=== PATIENT | female | born 1990 | race Hispanic/Latino ===

== ENCOUNTER 2019-07-26 16:35 | Outpatient (CLI) | payer MEDICAID ==
[2019-07-26 16:52] VITALS: BP 132/96
[2019-07-26] MEDS ORDERED: LACTATED RINGERS 500 ML IV ONE (17:37)
== END 2019-07-26 17:40 | disposition home or self-care (01) ==
LOC: TRG 16:35
PROVIDERS: ATTEND Obstetrics & Gynecology
DX: O47.00 False labor before 37 completed weeks of gestation, unspecified trimester (principal)
CPT/HCPCS: 59025

== ENCOUNTER 2019-09-19 01:58 | Outpatient (CLI) | payer MEDICAID ==
[2019-09-19 03:30] LABS: Bacteria,Urine 1+ /HPF (Negative); Bilirubin,Urine NEG (Negative); Blood,Urine SM (Negative); Color,Urine Yellow (Yellow); Mucus,Urine FEW /HPF; Protein,Urine <15 mg/dL mg/dL (Negative); Urobilinogen,Urine < 2.0 mg/dL (<2.0)
[2019-09-19] MEDS ORDERED: LACTATED RINGERS 1,000 ML IV ONE (04:32)
[2019-09-19 05:38] VITALS: BP 109/63
== END 2019-09-19 06:05 | disposition home or self-care (01) ==
LOC: TRG 01:58
PROVIDERS: ATTEND Obstetrics & Gynecology
DX: O26.893 Other specified pregnancy related conditions, third trimester (principal); R10.30 Lower abdominal pain, unspecified; O47.03 False labor before 37 completed weeks of gestation, third trimester; O10.913 Unspecified pre-existing hypertension complicating pregnancy, third trimester; Z3A.28 28 weeks gestation of pregnancy
CPT/HCPCS: 59025; 81001; 87086; 96360; J7120; 96365

== ENCOUNTER 2019-10-14 15:28 | Outpatient (CLI) | payer MEDICAID ==
[2019-10-14 17:27] VITALS: BP 120/63
--- NOTE | 2019-10-14 19:05 | Ultrasound Report ---
Limited OB Ultrasound HISTORY: JUANITA. TECHNIQUE: Grayscale and color Doppler imaging performed. COMPARISON: None FINDINGS: There is a single intrauterine gestation which is cephalic in presentation with heart rate of 125 bpm. JUANITA is 13 cm. Reported clinical age is 31 weeks and 4 days. IMPRESSION: Single viable intrauterine gestation as above. Signer Name: Stone Watts MD Signed: 10/14/2019 7:01 PM Workstation Name: [id number]
== END 2019-10-14 19:03 | disposition home or self-care (01) ==
LOC: TRG 15:28
PROVIDERS: ATTEND Obstetrics & Gynecology
DX: O47.03 False labor before 37 completed weeks of gestation, third trimester (principal); Z3A.31 31 weeks gestation of pregnancy
CPT/HCPCS: 59025; 76815

== ENCOUNTER 2019-10-27 03:43 | Outpatient (CLI) | payer MEDICAID ==
[2019-10-27 06:49] LABS: Bilirubin,Urine NEG (Negative); Blood,Urine MOD (Negative); Color,Urine Yellow (Yellow); Mucus,Urine FEW /HPF; Protein,Urine <15 mg/dL mg/dL (Negative); Urobilinogen,Urine < 2.0 mg/dL (<2.0)
[2019-10-27 07:24] LABS: Hematocrit 36.9 % (30.3-42.9); Hemoglobin 12.4 gm/dl (10.1-14.3); Mean Corpuscular HGB Conc 34 % (30-34); Mean Corpuscular Volume 90 fl (79-97); Platelet Count 234 K/mm3 (140-440); Red Blood Count 4.09 M/mm3 (3.65-5.03); Red Cell Distribution Width 12.6 % (13.2-15.2)
[2019-10-27 08:34] LABS: Alanine Aminotransferase 13 units/L (7-56)
[2019-10-27] MEDS ORDERED: BUTALB/ACETAMINOPHEN/CAFFEINE TAB PO PRN (11:31)
[2019-10-27 13:59] VITALS: BP 135/84
== END 2019-10-27 14:33 | disposition home or self-care (01) ==
LOC: TRG 03:43
PROVIDERS: ATTEND Obstetrics & Gynecology
DX: O26.893 Other specified pregnancy related conditions, third trimester (principal); R51 Headache; Z3A.33 33 weeks gestation of pregnancy
CPT/HCPCS: 36415; 81001; 82565; 83615; 84450; 84460; 84550; 85027

== ENCOUNTER 2019-11-02 09:41 | Inpatient (IN) | payer MEDICAID ==
--- NOTE | 2019-11-02 10:42 | History and Physical Report ---
History of Present Illness Date of examination: 11/02/19 Chief complaint: Elevated BP's in office History of present illness: Pt is a 29yo BF EDC 12/12/19; EGA 34 2/7 weeks presents to L&D from [facility] for evaluation of elevated BP's in office (150/117 and 149/96). She received care at [facility] since 10 weeks and co-managed by [facility] for Morbid Obesity, history of Preeclampsia, Chronic hypertension - not on meds, and delivery. She complains of headaches for past several days, but denies visual disturbances or epigastric pain. records are available and GBS is Positive. Past History Past Medical History: hypertension Past Surgical History: no surgical history PSS DELIVERY PROFESSIONAL History: herpes Social history: no significant social history, single - Obstetrical History Expected Date of Delivery: 12/12/19 Actual Gestation: 34 Week(s) 2 Day(s) : 3 Medications and Allergies Allergies Allergy/AdvReac Type Severity Reaction Status Date / Time No Known Allergies Allergy Unverified 07/26/19 16:52 Home Medications Medication Instructions Recorded Confirmed Last Taken Type Butalb/Acetamin/Caff 50-325-40 1 tab PO Q6HR PRN #20 tab 10/27/19 Unknown Rx [Fioricet 50-325-40] Review of Systems All systems: negative - Vital Signs Vital signs: Vital Signs Temp Pulse Resp BP Pulse Ox 97.6 F 71 16 137/89 98 11/02/19 10:07 11/02/19 10:07 11/02/19 10:07 11/02/19 10:07 11/02/19 10:07 Temp Pulse Resp BP Pulse Ox 97.6 F 72 16 139/107 98 11/02/19 10:07 11/02/19 10:27 11/02/19 10:07 11/02/19 10:22 11/02/19 10:27 - Physical Exam Breasts: Positive: deferred Cardiovascular: Regular rate Lungs: Positive: Clear to auscultation Abdomen: Positive: normal appearance Genitourinary (Female): Positive: normal external genitalia Uterus: Positive: enlarged Extremities: Positive: normal - Obstetrical FHR: category 1 Uterine Contraction Pattern: Absent Results Result Diagrams: 11/02/19 12:00 11/02/19 12:00 All other labs normal. Ultrasound: report reviewed ([facility] 08/13) Assessment and Plan - Patient Problems (1) 34 weeks gestation of Onset Date: 11/02/19 Current Visit: Yes Status: Acute Plan to address problem: A: IUP @ 34 2/7 weeks Chronic hypertension with Superimposed Preeclampsia Morbid obesity +GBS History of Preeclampsia History of delivery P: Admit to L&D for Observation and further evaluation of preeclampsia Obtain PIH labs, 24hour urine for protein, EKG Begin IV Magnesium sulfate, IV Hydralazine and IM Steroids [facility] consultation (2) Preeclampsia Onset Date: 11/02/19 Current Visit: Yes Status: Acute Qualifiers: Trimester: third trimester Qualified Code(s): O14.93 - Unspecified pre- eclampsia, third trimester
[2019-11-02] MEDS ORDERED: SENNOSIDES/DOCUSATE SODIUM 8.6/50 MG TAB PO PRN (10:46)
[2019-11-02] MEDS ORDERED: DOCUSATE SODIUM 100 MG CAP PO PRN (10:46)
[2019-11-02] MEDS ORDERED: ALUM-MAG HYDROXIDE-SIMETHICONE 200-200-20MG/5ML ORAL LIQD 30 ML PO PRN (10:46)
[2019-11-02] MEDS ORDERED: MAGNESIUM HYDROXIDE (MOM) ORAL LIQD UDC PO PRN (10:46)
[2019-11-02] MEDS ORDERED: ONDANSETRON 4 MG/2 ML INJ IV PRN (10:46)
[2019-11-02] MEDS ORDERED: MAGNESIUM SULFATE 4 GM/100 ML BAG IV ONE (10:46)
[2019-11-02] MEDS ORDERED: hydrALAZINE 20 MG/1 ML INJ IV PRN (10:58)
[2019-11-02] MEDS ORDERED: oxyCODONE /ACETAMINOPHEN 5-325MG TAB PO PRN (11:13)
[2019-11-02] MEDS: LACTATED RINGERS 1,000 ML IV SCH (11:44)
[2019-11-02 12:38] LABS: Bacteria,Urine 2+ /HPF (Negative); Bilirubin,Urine NEG (Negative); Blood,Urine SM (Negative); Color,Urine Straw (Yellow); Mucus,Urine FEW /HPF; Protein,Urine <15 mg/dL mg/dL (Negative); Urobilinogen,Urine < 2.0 mg/dL (<2.0)
[2019-11-02 12:40] LABS: Basophils % (Auto) 0.3 % (0.0-1.8); Eosinophils # (Auto) 0.1 K/mm3 (0.0-0.4); Eosinophils % (Auto) 0.7 % (0.0-4.3); Hematocrit 37.1 % (30.3-42.9); Hemoglobin 12.9 gm/dl (10.1-14.3); Lymphocytes # (Auto) 1.7 K/mm3 (1.2-5.4); Lymphocytes % (Auto) 20.8 % (13.4-35.0); Mean Corpuscular HGB Conc 35 % (30-34); Mean Corpuscular Volume 88 fl (79-97); Monocytes # (Auto) 0.7 K/mm3 (0.0-0.8); Platelet Count 223 K/mm3 (140-440); Red Blood Count 4.19 M/mm3 (3.65-5.03); Red Cell Distribution Width 12.7 % (13.2-15.2)
[2019-11-02] MEDS: MAGNESIUM SULFATE 40GM/1000ML 40 GM/1,000 ML BAG IV SCH (12:46)
[2019-11-02] MEDS: BETAMET ACET/BETAMET NA PH 6 MG/ML INJ 5 ML MDV IM SCH (13:26)
[2019-11-02 13:38] LABS: Alanine Aminotransferase 15 units/L (7-56); Albumin 3.2 g/dL (3.9-5); BUN/Creatinine Ratio 17; Blood Urea Nitrogen 5 mg/dL (7-17); Calcium 9.1 mg/dL (8.4-10.2); Hemolysis Index 61
[2019-11-02] MEDS: ACETAMINOPHEN 325 MG TAB PO PRN (18:21)
[2019-11-03] MEDS: ACETAMINOPHEN 325 MG TAB PO PRN (06:30)
[2019-11-03] MEDS: LACTATED RINGERS 1,000 ML IV SCH (08:25)
--- NOTE | 2019-11-03 09:18 | Progress Note ---
Assessment and Plan - Patient Problems (1) 34 weeks gestation of Onset Date: 11/02/19 Current Visit: Yes Status: Acute Plan to address problem: A: IUP @ 34 3/7 weeks Chronic hypertension with Superimposed Preeclampsia - improved on IV Magnesium sulfate Morbid obesity +GBS History of Preeclampsia History of delivery P: Continue with Observation and further evaluation of preeclampsia Continue IV Magnesium sulfate, IV Hydralazine and IM Steroids Awaiting [facility] consultation (2) Preeclampsia Onset Date: 11/02/19 Current Visit: Yes Status: Acute Qualifiers: Trimester: third trimester Qualified Code(s): O14.93 - Unspecified pre- eclampsia, third trimester Subjective - Subjective Date of service: 11/03/19 Principal diagnosis: IUP @ 34 3/7 weeks; Preeclampsia Interval history: Pt is a 29yo BF EDC 12/12/19; EGA 34 3/7 weeks who presented to L&D from [facility] for evaluation of elevated BP's in office (150/117 and 149/96). She received care at [facility] since 10 weeks and co-managed by [facility] for Morbid Obesity, history of Preeclampsia, Chronic hypertension - not on meds, and delivery. She complained of headaches for past several days, but denied visual disturbances or epigastric pain. records are available and GBS is Positive. She is currently on IV Magnesium sulfate, and received her 1st dose of Betamethasone and feeling well except for a mild headache. +FM No bleeding or contractions. Patient reports: movement normal, no new complaints, no loss of fluid, no vaginal bleeding, no contractions Objective - Vital Signs Vital Signs: Vital Signs - 12hr 11/02/19 11/02/19 11/02/19 21:17 21:21 21:22 Temperature Pulse Rate 102 H 102 H 96 H Respiratory Rate Blood Pressure 141/87 Blood Pressure [Right] O2 Sat by Pulse 100 96 Oximetry 11/02/19 11/02/19 11/02/19 21:23 21:27 21:28 Temperature Pulse Rate 100 H 101 H 107 H Respiratory Rate Blood Pressure 132/79 Blood Pressure [Right] O2 Sat by Pulse 94 96 Oximetry 11/02/19 11/02/19 11/02/19 21:32 21:37 21:42 Temperature Pulse Rate 106 H 95 H 96 H Respiratory Rate Blood Pressure Blood Pressure [Right] O2 Sat by Pulse 96 95 96 Oximetry 11/02/19 11/02/19 11/02/19 21:47 21:52 21:56 Temperature Pulse Rate 102 H 101 H 106 H Respiratory Rate Blood Pressure Blood Pressure [Right] O2 Sat by Pulse 95 95 94 Oximetry 11/02/19 11/02/19 11/02/19 21:57 21:59 22:02 Temperature Pulse Rate 104 H 118 H 97 H Respiratory Rate Blood Pressure 145/77 Blood Pressure [Right] O2 Sat by Pulse 96 98 Oximetry 11/02/19 11/02/19 11/02/19 22:05 22:07 22:12 Temperature Pulse Rate 107 H 88 95 H Respiratory Rate Blood Pressure Blood Pressure [Right] O2 Sat by Pulse 94 96 96 Oximetry 11/02/19 11/02/19 11/02/19 22:17 22:22 22:27 Temperature Pulse Rate 103 H 110 H 102 H Respiratory Rate Blood Pressure Blood Pressure [Right] O2 Sat by Pulse 96 96 96 Oximetry 11/02/19 11/02/19 11/02/19 22:28 22:32 22:37 Temperature Pulse Rate 90 92 H 90 Respiratory Rate Blood Pressure 133/82 Blood Pressure [Right] O2 Sat by Pulse 97 97 Oximetry 11/02/19 11/02/19 11/02/19 22:43 22:48 22:53 Temperature Pulse Rate 89 91 H 92 H Respiratory Rate Blood Pressure Blood Pressure [Right] O2 Sat by Pulse 95 96 96 Oximetry 11/02/19 11/02/19 11/02/19 22:58 23:03 23:08 Temperature Pulse Rate 86 110 H 89 Respiratory Rate Blood Pressure 121/58 Blood Pressure [Right] O2 Sat by Pulse 98 93 96 Oximetry 11/02/19 11/02/19 11/02/19 23:13 23:18 23:23 Temperature Pulse Rate 88 93 H 98 H Respiratory Rate Blood Pressure Blood Pressure [Right] O2 Sat by Pulse 97 98 96 Oximetry 11/02/19 11/02/19 11/02/19 23:28 23:33 23:38 Temperature Pulse Rate 90 81 87 Respiratory Rate Blood Pressure 121/67 Blood Pressure [Right] O2 Sat by Pulse 98 98 98 Oximetry 11/02/19 11/02/19 11/02/19 23:43 23:48 23:53 Temperature Pulse Rate 90 99 H 89 Respiratory Rate Blood Pressure Blood Pressure [Right] O2 Sat by Pulse 98 98 98 Oximetry 11/02/19 11/03/19 11/03/19 23:58 00:03 00:08 Temperature Pulse Rate 87 86 78 Respiratory Rate Blood Pressure 131/79 Blood Pressure [Right] O2 Sat by Pulse 97 98 97 Oximetry 11/03/19 11/03/19 11/03/19 00:13 00:18 00:23 Temperature Pulse Rate 83 90 94 H Respiratory Rate Blood Pressure Blood Pressure [Right] O2 Sat by Pulse 97 96 95 Oximetry 11/03/19 11/03/19 11/03/19 00:28 00:33 00:38 Temperature Pulse Rate 82 81 82 Respiratory Rate Blood Pressure 142/95 Blood Pressure [Right] O2 Sat by Pulse 97 98 97 Oximetry 11/03/19 11/03/19 11/03/19 00:43 00:48 00:53 Temperature Pulse Rate 88 113 H 96 H Respiratory Rate Blood Pressure Blood Pressure [Right] O2 Sat by Pulse 96 96 97 Oximetry 11/03/19 11/03/19 11/03/19 00:58 01:03 01:08 Temperature Pulse Rate 82 95 H 82 Respiratory Rate Blood Pressure 137/92 Blood Pressure [Right] O2 Sat by Pulse 97 97 97 Oximetry 11/03/19 11/03/19 11/03/19 01:13 01:18 01:23 Temperature Pulse Rate 80 86 83 Respiratory Rate Blood Pressure Blood Pressure [Right] O2 Sat by Pulse 96 96 96 Oximetry 11/03/19 11/03/19 11/03/19 01:27 01:28 01:33 Temperature Pulse Rate 80 91 H 79 Respiratory Rate Blood Pressure 126/77 Blood Pressure [Right] O2 Sat by Pulse 97 95 Oximetry 11/03/19 11/03/19 11/03/19 01:35 01:38 01:40 Temperature Pulse Rate 78 98 H 99 H Respiratory Rate Blood Pressure Blood Pressure [Right] O2 Sat by Pulse 94 95 94 Oximetry 11/03/19 11/03/19 11/03/19 01:43 01:48 01:53 Temperature Pulse Rate 94 H 89 86 Respiratory Rate Blood Pressure Blood Pressure [Right] O2 Sat by Pulse 95 94 95 Oximetry 11/03/19 11/03/19 11/03/19 01:55 01:58 02:01 Temperature Pulse Rate 97 H 89 85 Respiratory Rate Blood Pressure Blood Pressure [Right] O2 Sat by Pulse 94 95 94 Oximetry 11/03/19 11/03/19 11/03/19 02:03 02:06 02:07 Temperature 98.4 F Pulse Rate 88 88 Respiratory 14 Rate Blood Pressure Blood Pressure [Right] O2 Sat by Pulse 95 94 Oximetry 11/03/19 11/03/19 11/03/19 02:08 02:13 02:18 Temperature Pulse Rate 91 H 96 H 87 Respiratory Rate Blood Pressure Blood Pressure [Right] O2 Sat by Pulse 95 96 96 Oximetry 11/03/19 11/03/19 11/03/19 02:19 02:23 02:24 Temperature Pulse Rate 88 90 89 Respiratory Rate Blood Pressure Blood Pressure [Right] O2 Sat by Pulse 94 94 94 Oximetry 11/03/19 11/03/19 11/03/19 02:28 02:29 02:31 Temperature Pulse Rate 93 H 89 90 Respiratory Rate Blood Pressure 122/61 Blood Pressure [Right] O2 Sat by Pulse 95 94 Oximetry 11/03/19 11/03/19 11/03/19 02:33 02:38 02:41 Temperature Pulse Rate 89 93 H 87 Respiratory Rate Blood Pressure Blood Pressure [Right] O2 Sat by Pulse 94 96 94 Oximetry 11/03/19 11/03/19 11/03/19 02:43 02:48 02:53 Temperature Pulse Rate 86 89 92 H Respiratory Rate Blood Pressure Blood Pressure [Right] O2 Sat by Pulse 95 96 95 Oximetry 11/03/19 11/03/19 11/03/19 02:54 02:58 03:01 Temperature Pulse Rate 92 H 91 H 93 H Respiratory Rate Blood Pressure Blood Pressure [Right] O2 Sat by Pulse 94 94 94 Oximetry 11/03/19 11/03/19 11/03/19 03:03 03:08 03:13 Temperature Pulse Rate 94 H 93 H 108 H Respiratory Rate Blood Pressure Blood Pressure [Right] O2 Sat by Pulse 94 94 96 Oximetry 11/03/19 11/03/19 11/03/19 03:18 03:23 03:28 Temperature Pulse Rate 97 H 89 83 Respiratory Rate Blood Pressure Blood Pressure [Right] O2 Sat by Pulse 98 97 96 Oximetry 11/03/19 11/03/19 11/03/19 03:32 03:33 03:34 Temperature Pulse Rate 79 83 84 Respiratory Rate Blood Pressure 119/61 Blood Pressure [Right] O2 Sat by Pulse 95 94 Oximetry 11/03/19 11/03/19 11/03/19 03:38 03:43 03:48 Temperature Pulse Rate 93 H 90 78 Respiratory Rate Blood Pressure Blood Pressure [Right] O2 Sat by Pulse 94 97 97 Oximetry 11/03/19 11/03/19 11/03/19 03:53 03:58 04:03 Temperature Pulse Rate 78 81 76 Respiratory Rate Blood Pressure Blood Pressure [Right] O2 Sat by Pulse 96 96 96 Oximetry 11/03/19 11/03/19 11/03/19 04:08 04:13 04:18 Temperature Pulse Rate 79 80 67 Respiratory Rate Blood Pressure Blood Pressure [Right] O2 Sat by Pulse 96 96 96 Oximetry 11/03/19 11/03/19 11/03/19 04:23 04:28 04:32 Temperature Pulse Rate 79 79 83 Respiratory Rate Blood Pressure 117/59 Blood Pressure [Right] O2 Sat by Pulse 96 95 Oximetry 11/03/19 11/03/19 11/03/19 04:39 04:44 04:49 Temperature Pulse Rate 72 79 81 Respiratory Rate Blood Pressure Blood Pressure [Right] O2 Sat by Pulse 99 98 95 Oximetry 11/03/19 11/03/19 11/03/19 04:51 04:54 04:56 Temperature Pulse Rate 84 83 82 Respiratory Rate Blood Pressure Blood Pressure [Right] O2 Sat by Pulse 94 93 94 Oximetry 11/03/19 11/03/19 11/03/19 04:59 05:02 05:04 Temperature Pulse Rate 84 81 85 Respiratory Rate Blood Pressure Blood Pressure [Right] O2 Sat by Pulse 95 94 94 Oximetry 11/03/19 11/03/19 11/03/19 05:07 05:09 05:14 Temperature Pulse Rate 83 75 76 Respiratory Rate Blood Pressure Blood Pressure [Right] O2 Sat by Pulse 94 96 96 Oximetry 11/03/19 11/03/19 11/03/19 05:19 05:22 05:24 Temperature Pulse Rate 82 85 80 Respiratory Rate Blood Pressure Blood Pressure [Right] O2 Sat by Pulse 95 94 95 Oximetry 11/03/19 11/03/19 11/03/19 05:29 05:31 05:34 Temperature Pulse Rate 81 113 H 78 Respiratory Rate Blood Pressure 135/78 Blood Pressure [Right] O2 Sat by Pulse 96 92 96 Oximetry 12/11/03/19 11/03/19 05:37 05:39 05:44 Temperature Pulse Rate 68 71 107 H Respiratory Rate Blood Pressure Blood Pressure [Right] O2 Sat by Pulse 94 96 96 Oximetry 11/03/19 11/03/19 11/03/19 05:46 05:49 05:51 Temperature Pulse Rate 113 H 73 77 Respiratory Rate Blood Pressure Blood Pressure [Right] O2 Sat by Pulse 94 95 94 Oximetry 11/03/19 11/03/19 11/03/19 05:54 05:59 06:04 Temperature Pulse Rate 72 64 73 Respiratory Rate Blood Pressure Blood Pressure [Right] O2 Sat by Pulse 96 96 95 Oximetry 11/03/19 11/03/19 11/03/19 06:07 06:09 06:12 Temperature Pulse Rate 72 90 95 H Respiratory Rate Blood Pressure Blood Pressure [Right] O2 Sat by Pulse 94 96 94 Oximetry 11/03/19 11/03/19 11/03/19 06:14 06:19 06:24 Temperature Pulse Rate 100 H 84 84 Respiratory Rate Blood Pressure Blood Pressure [Right] O2 Sat by Pulse 98 98 99 Oximetry 11/03/19 11/03/19 11/03/19 06:29 06:30 06:31 Temperature Pulse Rate 91 H 78 Respiratory 12 Rate Blood Pressure 140/86 Blood Pressure [Right] O2 Sat by Pulse 98 Oximetry 11/03/19 11/03/19 11/03/19 06:34 06:39 06:44 Temperature Pulse Rate 79 84 86 Respiratory Rate Blood Pressure Blood Pressure [Right] O2 Sat by Pulse 97 98 97 Oximetry 11/03/19 11/03/19 11/03/19 06:49 06:54 06:59 Temperature Pulse Rate 77 82 89 Respiratory Rate Blood Pressure Blood Pressure [Right] O2 Sat by Pulse 98 99 98 Oximetry 11/03/19 11/03/19 11/03/19 07:04 07:09 07:14 Temperature Pulse Rate 75 105 H 80 Respiratory Rate Blood Pressure Blood Pressure [Right] O2 Sat by Pulse 99 97 96 Oximetry 11/03/19 11/03/19 11/03/19 07:19 07:24 07:29 Temperature Pulse Rate 86 87 92 H Respiratory Rate Blood Pressure Blood Pressure [Right] O2 Sat by Pulse 96 97 98 Oximetry 11/03/19 11/03/19 11/03/19 07:32 07:34 07:37 Temperature Pulse Rate 82 82 67 Respiratory Rate Blood Pressure 121/71 Blood Pressure [Right] O2 Sat by Pulse 93 97 Oximetry 11/03/19 11/03/19 11/03/19 07:39 07:44 07:48 Temperature 98.3 F Pulse Rate 76 80 97 H Respiratory 16 Rate Blood Pressure 124/73 Blood Pressure 124/73 [Right] O2 Sat by Pulse 97 97 98 Oximetry 11/03/19 11/03/19 11/03/19 07:49 07:54 07:59 Temperature Pulse Rate 96 H 83 77 Respiratory Rate Blood Pressure Blood Pressure [Right] O2 Sat by Pulse 98 98 97 Oximetry 11/03/19 11/03/19 11/03/19 08:04 08:09 08:14 Temperature Pulse Rate 87 103 H 86 Respiratory Rate Blood Pressure Blood Pressure [Right] O2 Sat by Pulse 99 98 98 Oximetry 11/03/19 11/03/19 11/03/19 08:19 08:24 08:29 Temperature Pulse Rate 95 H 111 H 108 H Respiratory Rate Blood Pressure Blood Pressure [Right] O2 Sat by Pulse 98 98 99 Oximetry 11/03/19 11/03/19 11/03/19 08:32 08:34 08:40 Temperature Pulse Rate 107 H 115 H 107 H Respiratory Rate Blood Pressure 127/80 Blood Pressure [Right] O2 Sat by Pulse 98 98 Oximetry 11/03/19 11/03/19 11/03/19 08:45 08:50 08:55 Temperature Pulse Rate 96 H 95 H 100 H Respiratory Rate Blood Pressure Blood Pressure [Right] O2 Sat by Pulse 98 99 98 Oximetry 11/03/19 11/03/19 11/03/19 09:00 09:05 09:10 Temperature Pulse Rate 99 H 95 H 97 H Respiratory Rate Blood Pressure Blood Pressure [Right] O2 Sat by Pulse 96 96 97 Oximetry - Exam Breasts: deferred Lungs: Clear to auscultation Abdomen: Present: normal appearance, soft Uterus: Present: normal FHR: category 1 Uterine Contraction Monitor Mode: External Uterine Contraction Pattern: Absent - Labs Labs: Abnormal Labs 11/02/19 11/02/19 11/02/19 12:00 12:00 Unknown MCHC 35 H RDW 12.7 L Cascade % (Auto) 8.0 H Seg Neutrophils % 70.2 H Carbon Dioxide 16 L BUN 5 L Creatinine 0.3 L Magnesium 3.90 H Alkaline Phosphatase 172 H Albumin 3.2 L 11/03/19 00:31 MCHC RDW Cascade % (Auto) Seg Neutrophils % Carbon Dioxide BUN Creatinine Magnesium 3.60 H Alkaline Phosphatase Albumin Laboratory Results - last 24 hr 11/02/19 11/02/19 11/02/19 12:00 12:00 12:00 WBC 8.3 RBC 4.19 Hgb 12.9 Hct 37.1 MCV 88 MCH 31 MCHC 35 H RDW 12.7 L Plt Count 223 Lymph % (Auto) 20.8 Cascade % (Auto) 8.0 H Eos % (Auto) 0.7 Baso % (Auto) 0.3 Lymph # 1.7 Cascade # 0.7 Eos # 0.1 Baso # 0.0 Seg Neutrophils % 70.2 H Seg Neutrophils # 5.8 Sodium 138 Potassium 4.5 Chloride 105.9 Carbon Dioxide 16 L Anion Gap 21 BUN 5 L Creatinine 0.3 L Estimated GFR > 60 BUN/Creatinine Ratio 17 Glucose 69 Uric Acid Calcium 9.1 Magnesium 1.70 Total Bilirubin 0.50 AST 22 ALT 15 Alkaline Phosphatase 172 H Total Protein 6.6 Albumin 3.2 L Albumin/Globulin Ratio 0.9 Urine Color Urine Turbidity Urine pH Ur Specific [place] Urine Protein Urine Glucose (UA) Urine Ketones Urine Blood Urine Nitrite Urine Bilirubin Urine Urobilinogen Ur Leukocyte Esterase Urine WBC (Auto) Urine RBC (Auto) U Epithel Cells (Auto) Urine Bacteria (Auto) Urine Mucus Syphilis IgG Antibody Hep Bs Antigen Blood Type Antibody Screen 11/02/19 11/02/19 11/02/19 20:54 20:54 21:15 WBC RBC Hgb Hct MCV MCH MCHC RDW Plt Count Lymph % (Auto) Cascade % (Auto) Eos % (Auto) Baso % (Auto) Lymph # Cascade # Eos # Baso # Seg Neutrophils % Seg Neutrophils # Sodium Potassium Chloride Carbon Dioxide Anion Gap BUN Creatinine Estimated GFR BUN/Creatinine Ratio Glucose Uric Acid Calcium Magnesium Total Bilirubin AST ALT Alkaline Phosphatase Total Protein Albumin Albumin/Globulin Ratio Urine Color Urine Turbidity Urine pH Ur Specific [place] Urine Protein Urine Glucose (UA) Urine Ketones Urine Blood Urine Nitrite Urine Bilirubin Urine Urobilinogen Ur Leukocyte Esterase Urine WBC (Auto) Urine RBC (Auto) U Epithel Cells (Auto) Urine Bacteria (Auto) Urine Mucus Syphilis IgG Antibody Non-reactive Hep Bs Antigen Non-reactive Blood Type B POSITIVE Antibody Screen Negative 11/02/19 11/02/19 11/02/19 Unknown Unknown Unknown WBC RBC Hgb Hct MCV MCH MCHC RDW Plt Count Lymph % (Auto) Cascade % (Auto) Eos % (Auto) Baso % (Auto) Lymph # Cascade # Eos # Baso # Seg Neutrophils % Seg Neutrophils # Sodium Potassium Chloride Carbon Dioxide Anion Gap BUN Creatinine Estimated GFR BUN/Creatinine Ratio Glucose Uric Acid 4.9 Calcium Magnesium 3.90 H Total Bilirubin AST ALT Alkaline Phosphatase Total Protein Albumin Albumin/Globulin Ratio Urine Color Straw Urine Turbidity Clear Urine pH 6.0 Ur Specific [place] 1.009 Urine Protein <15 mg/dl Urine Glucose (UA) Neg Urine Ketones Neg Urine Blood Sm Urine Nitrite Neg Urine Bilirubin Neg Urine Urobilinogen < 2.0 Ur Leukocyte Esterase Lg Urine WBC (Auto) 1.0 Urine RBC (Auto) 4.0 U Epithel Cells (Auto) 1.0 Urine Bacteria (Auto) 2+ Urine Mucus Few Syphilis IgG Antibody Hep Bs Antigen Blood Type Antibody Screen 11/03/19 00:31 WBC RBC Hgb Hct MCV MCH MCHC RDW Plt Count Lymph % (Auto) Cascade % (Auto) Eos % (Auto) Baso % (Auto) Lymph # [place] # Eos # Baso # Seg Neutrophils % Seg Neutrophils # Sodium Potassium Chloride Carbon Dioxide Anion Gap BUN Creatinine Estimated GFR BUN/Creatinine Ratio Glucose Uric Acid Calcium Magnesium 3.60 H Total Bilirubin AST ALT Alkaline Phosphatase Total Protein Albumin Albumin/Globulin Ratio Urine Color Urine Turbidity Urine pH Ur Specific [place] Urine Protein Urine Glucose (UA) Urine Ketones Urine Blood Urine Nitrite Urine Bilirubin Urine Urobilinogen Ur Leukocyte Esterase Urine WBC (Auto) Urine RBC (Auto) U Epithel Cells (Auto) Urine Bacteria (Auto) Urine Mucus Syphilis IgG Antibody Hep Bs Antigen Blood Type Antibody Screen
[2019-11-03] MEDS: PRENATAL VIT27-FE FUMARATE-FOLIC ACID VIT TAB PO SCH (10:32)
[2019-11-03] MEDS: MAGNESIUM SULFATE 40GM/1000ML 40 GM/1,000 ML BAG IV SCH (11:08)
[2019-11-03] MEDS: BETAMET ACET/BETAMET NA PH 6 MG/ML INJ 5 ML MDV IM SCH (13:48)
[2019-11-03] MEDS ORDERED: ZOLPIDEM 5 MG TAB PO PRN ×2 (14:22→18:03)
[2019-11-04] MEDS: PRENATAL VIT27-FE FUMARATE-FOLIC ACID VIT TAB PO SCH (10:24)
--- NOTE | 2019-11-04 11:05 | Progress Note ---
Assessment and Plan - Patient Problems (1) 34 weeks gestation of Onset Date: 11/02/19 Current Visit: Yes Status: Acute Plan to address problem: A: IUP @ 34 4/7 weeks Chronic hypertension with Superimposed Preeclampsia Morbid obesity +GBS History of Preeclampsia History of delivery P: Will begin Cervidil induction of labor (2) Preeclampsia Onset Date: 11/02/19 Current Visit: Yes Status: Acute Qualifiers: Trimester: third trimester Qualified Code(s): O14.93 - Unspecified pre- eclampsia, third trimester Subjective - Subjective Date of service: 11/04/19 Principal diagnosis: IUP @ 34 4/7 weeks; Preeclampsia Interval history: Pt is a 29yo BF EDC 12/12/19; EGA 34 4/7 weeks who presented to L&D from [facility] for evaluation of elevated BP's in office (150/117 and 149/96). She received care at [facility] since 10 weeks and co-managed by [facility] for Morbid Obesity, history of Preeclampsia, Chronic hypertension - not on meds, and delivery. She complained of headaches for past several days, but denied visual disturbances or epigastric pain. records are available and GBS is Positive. She received IV Magnesium sulfate, and Betamethasone and feeling well without headaches. +FM No bleeding or contractions. DBP's still in the 90's Patient reports: movement normal, no new complaints, no loss of fluid, no vaginal bleeding, no contractions Objective - Vital Signs Vital Signs: Vital Signs - 12hr 11/03/19 11/03/19 11/03/19 23:06 23:11 23:16 Temperature Pulse Rate 85 75 80 Respiratory Rate Blood Pressure O2 Sat by Pulse 98 97 96 Oximetry 11/03/19 11/03/19 11/03/19 23:21 23:26 23:31 Temperature Pulse Rate 78 86 86 Respiratory Rate Blood Pressure O2 Sat by Pulse 96 97 96 Oximetry 11/03/19 11/03/19 11/03/19 23:36 23:41 23:45 Temperature Pulse Rate 84 92 H 70 Respiratory Rate Blood Pressure O2 Sat by Pulse 97 97 88 Oximetry 11/03/19 11/03/19 11/03/19 23:46 23:51 23:56 Temperature Pulse Rate 79 76 87 Respiratory Rate Blood Pressure O2 Sat by Pulse 99 99 98 Oximetry 11/03/19 11/04/1920 23:58 00:01 00:06 Temperature Pulse Rate 70 53 L 67 Respiratory Rate Blood Pressure 109/59 O2 Sat by Pulse 81 L 97 Oximetry 11/04/19 11/04/19 11/04/19 00:11 00:16 00:21 Temperature Pulse Rate 72 72 69 Respiratory Rate Blood Pressure O2 Sat by Pulse 98 98 98 Oximetry 11/04/19 11/04/19 11/04/19 00:26 00:31 00:36 Temperature Pulse Rate 70 67 76 Respiratory Rate Blood Pressure O2 Sat by Pulse 98 98 97 Oximetry 11/04/19 11/04/19 11/04/19 00:41 00:46 01:00 Temperature Pulse Rate 72 76 80 Respiratory Rate Blood Pressure O2 Sat by Pulse 95 95 98 Oximetry 11/04/19 11/04/19 11/04/19 01:05 01:10 01:15 Temperature Pulse Rate 76 77 89 Respiratory Rate Blood Pressure O2 Sat by Pulse 97 97 96 Oximetry 11/04/19 11/04/19 11/04/19 01:20 01:25 01:30 Temperature Pulse Rate 79 103 H 84 Respiratory Rate Blood Pressure O2 Sat by Pulse 97 96 97 Oximetry 11/04/19 11/04/19 11/04/19 01:35 01:40 01:45 Temperature Pulse Rate 85 81 86 Respiratory Rate Blood Pressure O2 Sat by Pulse 97 96 96 Oximetry 11/04/19 11/04/19 11/04/19 01:50 01:55 01:58 Temperature Pulse Rate 86 91 H 92 H Respiratory Rate Blood Pressure 120/58 O2 Sat by Pulse 95 95 91 Oximetry 11/04/19 11/04/19 11/04/19 02:00 02:05 02:10 Temperature Pulse Rate 84 85 86 Respiratory Rate Blood Pressure O2 Sat by Pulse 96 96 96 Oximetry 11/04/19 11/04/19 11/04/19 02:15 02:20 02:25 Temperature Pulse Rate 88 85 81 Respiratory Rate Blood Pressure O2 Sat by Pulse 96 95 96 Oximetry 11/04/19 11/04/19 11/04/19 02:30 02:35 02:40 Temperature Pulse Rate 94 H 92 H 82 Respiratory Rate Blood Pressure O2 Sat by Pulse 96 95 96 Oximetry 11/04/19 11/04/19 11/04/19 02:45 04:34 04:58 Temperature Pulse Rate 77 80 65 Respiratory Rate Blood Pressure 118/71 113/59 O2 Sat by Pulse 97 Oximetry 11/04/19 11/04/19 11/04/19 05:58 06:58 07:30 Temperature 98.4 F Pulse Rate 65 85 Respiratory 14 Rate Blood Pressure 122/72 129/67 O2 Sat by Pulse Oximetry 11/04/19 11/04/19 11/04/19 07:50 07:52 07:55 Temperature Pulse Rate 75 93 H 94 H Respiratory Rate Blood Pressure 144/88 145/98 O2 Sat by Pulse 100 99 Oximetry 11/04/19 11/04/19 11/04/19 07:58 08:00 08:05 Temperature Pulse Rate 71 71 72 Respiratory Rate Blood Pressure 128/85 O2 Sat by Pulse 98 99 Oximetry 11/04/19 11/04/19 11/04/19 08:10 08:15 08:20 Temperature Pulse Rate 84 76 84 Respiratory Rate Blood Pressure O2 Sat by Pulse 99 98 99 Oximetry 11/04/19 11/04/19 11/04/19 08:25 08:30 08:35 Temperature Pulse Rate 84 83 82 Respiratory Rate Blood Pressure O2 Sat by Pulse 98 97 97 Oximetry 11/04/19 11/04/19 11/04/19 08:40 08:45 08:58 Temperature Pulse Rate 91 H 74 102 H Respiratory Rate Blood Pressure 136/96 O2 Sat by Pulse 97 98 Oximetry 11/04/19 11/04/19 11/04/19 09:29 09:34 09:39 Temperature Pulse Rate 85 102 H 106 H Respiratory Rate Blood Pressure O2 Sat by Pulse 99 96 98 Oximetry 11/04/19 11/04/19 11/04/19 09:44 09:49 09:55 Temperature Pulse Rate 80 84 115 H Respiratory Rate Blood Pressure O2 Sat by Pulse 99 99 98 Oximetry 11/04/19 11/04/19 11/04/19 09:58 10:00 10:05 Temperature Pulse Rate 98 H 76 107 H Respiratory Rate Blood Pressure 123/86 O2 Sat by Pulse 99 99 Oximetry 11/04/19 11/04/19 11/04/19 10:10 10:13 10:15 Temperature Pulse Rate 81 105 H 88 Respiratory Rate Blood Pressure O2 Sat by Pulse 97 92 99 Oximetry 11/04/19 11/04/19 11/04/19 10:20 10:25 10:30 Temperature Pulse Rate 77 71 113 H Respiratory Rate Blood Pressure O2 Sat by Pulse 98 98 100 Oximetry 11/04/19 11/04/19 11/04/19 10:35 10:40 10:45 Temperature Pulse Rate 93 H 91 H 90 Respiratory Rate Blood Pressure O2 Sat by Pulse 100 100 98 Oximetry 11/04/19 11/04/19 11/04/19 10:50 10:55 10:58 Temperature Pulse Rate 92 H 93 H 109 H Respiratory Rate Blood Pressure 142/92 O2 Sat by Pulse 100 100 Oximetry 11/04/19 11:00 Temperature Pulse Rate 104 H Respiratory Rate Blood Pressure O2 Sat by Pulse 100 Oximetry - Exam Abdomen: Present: normal appearance, soft Uterus: Present: normal FHR: category 1 Uterine Contraction Monitor Mode: External Cervical Dilatation: 0.5 Cervical Effacement Percentage: 50 Uterine Contraction Pattern: Irregular Uterine Tone Measurement Phase: Contraction Uterine Contraction Intensity: Mild - Labs Labs: Abnormal Labs 11/02/19 11/02/19 11/02/19 12:00 12:00 13:04 MCHC 35 H RDW 12.7 L [place] % (Auto) 8.0 H Seg Neutrophils % 70.2 H Carbon Dioxide 16 L BUN 5 L Creatinine 0.3 L Magnesium Alkaline Phosphatase 172 H Albumin 3.2 L Ur Total Protein 24 Hr 337.50 H 11/02/19 11/03/19 Unknown 00:31 MCHC RDW [place] % (Auto) Seg Neutrophils % Carbon Dioxide BUN Creatinine Magnesium 3.90 H 3.60 H Alkaline Phosphatase Albumin Ur Total Protein 24 Hr Laboratory Results - last 24 hr 11/02/19 13:04 Urine Total Volume 3750 Ur Total Protein 24 Hr 337.50 H Urine Total Protein 9
[2019-11-04] MEDS ORDERED: DINOPROSTONE 10 MG VAG SUPP VG ONE (11:22)
[2019-11-04] MEDS: BUTORPHANOL 2 MG/1 ML INJ IV PRN (21:49)
[2019-11-05] MEDS: LACTATED RINGERS 1,000 ML IV SCH ×3 (00:17→14:07)
[2019-11-05] MEDS: BUTORPHANOL 2 MG/1 ML INJ IV PRN (00:30)
[2019-11-05] MEDS ORDERED: AMPICILLIN/NS 2 GM/100 ML 2 GM/100 ML BAG IV ONE (05:00)
[2019-11-05] MEDS ORDERED: OXYTOCIN DRIP 30 UNITS/500 ML BAG IV SCH (05:00)
[2019-11-05] MEDS ORDERED: AMPICILLIN 1 GM in SODIUM CHLORIDE 0.9% 50 ML IV SCH (09:00)
[2019-11-05] MEDS: AMPICILLIN/NS 1 GM/50 ML 1 GM/50 ML BAG IV SCH ×2 (09:33→13:48)
[2019-11-05] MEDS: PRENATAL VIT27-FE FUMARATE-FOLIC ACID VIT TAB PO SCH (09:34)
--- NOTE | 2019-11-05 10:51 | Progress Note ---
Assessment and Plan - Patient Problems (1) 34 weeks gestation of Onset Date: 11/02/19 Current Visit: Yes Status: Acute Plan to address problem: A: IUP @ 34 5/7 weeks Chronic hypertension with Superimposed Preeclampsia Morbid obesity +GBS History of Preeclampsia History of delivery P: Will continue with Cervidil/Pitocin induction of labor IV Ampicillin Expectant vaginal delivery (2) Preeclampsia Onset Date: 11/02/19 Current Visit: Yes Status: Acute Qualifiers: Trimester: third trimester Qualified Code(s): O14.93 - Unspecified pre- eclampsia, third trimester Subjective - Subjective Date of service: 11/05/19 Principal diagnosis: IUP @ 34 5/7 weeks; Preeclampsia Interval history: Pt is a 29yo BF EDC 12/12/19; EGA 34 5/7 weeks who presented to L&D from [facility] for evaluation of elevated BP's in office (150/117 and 149/96). She received care at [facility] since 10 weeks and co-managed by [facility] for Morbid Obesity, history of Preeclampsia, Chronic hypertension - not on meds, and delivery. She complained of headaches for past several days, but denied visual disturbances or epigastric pain. records are available and GBS is Positive. She received IV Magnesium sulfate, and Betamethasone and feeling well without headaches. +FM No bleeding or contractions. She continued with elevated DBP's still in the 90's, thus cervidil induction was begun. She is currently on Pitocin 14mu/min and clifford q 3-5 mins. Patient reports: movement normal, contractions, no new complaints, no loss of fluid, no vaginal bleeding Objective - Vital Signs Vital Signs: Vital Signs - 12hr 11/04/19 11/04/19 11/04/19 22:49 22:54 22:59 Temperature Pulse Rate 104 H 88 84 Respiratory Rate Blood Pressure Blood Pressure [Right] O2 Sat by Pulse 96 95 96 Oximetry 11/04/19 11/04/19 11/04/19 23:04 23:09 23:13 Temperature Pulse Rate 91 H 87 80 Respiratory Rate Blood Pressure 113/59 Blood Pressure [Right] O2 Sat by Pulse 95 96 Oximetry 11/04/19 11/04/19 11/04/19 23:14 23:19 23:22 Temperature Pulse Rate 79 109 H 87 Respiratory Rate Blood Pressure Blood Pressure [Right] O2 Sat by Pulse 96 96 94 Oximetry 11/04/19 11/04/19 11/04/19 23:24 23:29 23:32 Temperature Pulse Rate 87 89 85 Respiratory Rate Blood Pressure 116/62 Blood Pressure [Right] O2 Sat by Pulse 95 96 94 Oximetry 11/04/19 11/04/19 11/04/19 23:34 23:39 23:44 Temperature Pulse Rate 88 88 89 Respiratory Rate Blood Pressure Blood Pressure [Right] O2 Sat by Pulse 95 95 95 Oximetry 11/04/19 11/04/19 11/04/19 23:49 23:54 23:59 Temperature Pulse Rate 92 H 92 H 85 Respiratory Rate Blood Pressure Blood Pressure [Right] O2 Sat by Pulse 94 95 95 Oximetry 11/05/19 11/05/19 11/05/19 00:02 00:04 00:09 Temperature Pulse Rate 81 92 H 88 Respiratory Rate Blood Pressure 119/61 Blood Pressure [Right] O2 Sat by Pulse 94 96 Oximetry 11/05/19 11/05/19 11/05/19 00:14 00:15 00:19 Temperature 98.5 F Pulse Rate 92 H 87 Respiratory Rate Blood Pressure Blood Pressure [Right] O2 Sat by Pulse 95 95 Oximetry 11/05/19 11/05/19 11/05/19 00:24 00:29 00:32 Temperature Pulse Rate 91 H 84 88 Respiratory Rate Blood Pressure 121/70 Blood Pressure [Right] O2 Sat by Pulse 97 96 94 Oximetry 11/05/19 11/05/19 11/05/19 00:34 00:39 00:42 Temperature Pulse Rate 89 98 H 74 Respiratory Rate Blood Pressure Blood Pressure [Right] O2 Sat by Pulse 92 96 93 Oximetry 11/05/19 11/05/19 11/05/19 00:45 00:48 00:50 Temperature Pulse Rate 79 77 93 H Respiratory Rate Blood Pressure Blood Pressure [Right] O2 Sat by Pulse 93 93 95 Oximetry 11/05/19 11/05/19 11/05/19 00:53 00:55 01:00 Temperature Pulse Rate 76 87 83 Respiratory Rate Blood Pressure Blood Pressure [Right] O2 Sat by Pulse 94 94 95 Oximetry 11/05/19 11/05/19 11/05/19 01:02 01:05 01:10 Temperature Pulse Rate 80 90 88 Respiratory Rate Blood Pressure 125/77 Blood Pressure [Right] O2 Sat by Pulse 93 95 Oximetry 11/05/19 11/05/19 11/05/19 01:11 01:15 01:19 Temperature Pulse Rate 88 80 85 Respiratory Rate Blood Pressure Blood Pressure [Right] O2 Sat by Pulse 94 94 94 Oximetry 11/05/19 11/05/19 11/05/19 01:20 01:25 01:30 Temperature Pulse Rate 77 86 82 Respiratory Rate Blood Pressure Blood Pressure [Right] O2 Sat by Pulse 95 94 95 Oximetry 11/05/19 11/05/19 11/05/19 01:31 01:32 01:35 Temperature Pulse Rate 88 79 79 Respiratory Rate Blood Pressure 123/76 Blood Pressure [Right] O2 Sat by Pulse 94 95 Oximetry 11/05/19 11/05/19 11/05/19 01:40 01:43 01:45 Temperature Pulse Rate 94 H 78 78 Respiratory Rate Blood Pressure Blood Pressure [Right] O2 Sat by Pulse 96 94 94 Oximetry 11/05/19 11/05/19 11/05/19 01:48 01:50 01:55 Temperature Pulse Rate 77 73 72 Respiratory Rate Blood Pressure Blood Pressure [Right] O2 Sat by Pulse 94 94 94 Oximetry 11/05/19 11/05/19 11/05/19 02:00 02:02 02:05 Temperature Pulse Rate 82 96 H 74 Respiratory Rate Blood Pressure 127/78 Blood Pressure [Right] O2 Sat by Pulse 96 96 Oximetry 11/05/19 11/05/19 11/05/19 02:10 02:14 02:15 Temperature Pulse Rate 99 H 81 73 Respiratory Rate Blood Pressure Blood Pressure [Right] O2 Sat by Pulse 96 94 94 Oximetry 11/05/19 11/05/19 11/05/19 02:20 02:25 02:38 Temperature Pulse Rate 75 76 84 Respiratory Rate Blood Pressure Blood Pressure [Right] O2 Sat by Pulse 93 93 98 Oximetry 11/05/19 11/05/19 11/05/19 02:39 02:43 02:48 Temperature Pulse Rate 92 H 92 H 82 Respiratory Rate Blood Pressure Blood Pressure [Right] O2 Sat by Pulse 93 97 95 Oximetry 11/05/19 11/05/19 11/05/19 02:53 02:58 03:02 Temperature Pulse Rate 83 95 H 89 Respiratory Rate Blood Pressure 124/54 Blood Pressure [Right] O2 Sat by Pulse 97 96 Oximetry 11/05/19 11/05/19 11/05/19 03:03 03:07 03:08 Temperature Pulse Rate 84 84 84 Respiratory Rate Blood Pressure Blood Pressure [Right] O2 Sat by Pulse 97 94 95 Oximetry 11/05/19 11/05/19 11/05/19 03:13 03:18 03:22 Temperature Pulse Rate 88 72 73 Respiratory Rate Blood Pressure Blood Pressure [Right] O2 Sat by Pulse 96 95 94 Oximetry 11/05/19 11/05/19 11/05/19 03:23 03:28 03:33 Temperature Pulse Rate 79 81 75 Respiratory Rate Blood Pressure 60/31 Blood Pressure [Right] O2 Sat by Pulse 95 95 Oximetry 11/05/19 11/05/19 11/05/19 03:35 03:36 03:40 Temperature Pulse Rate 111 H 93 H 80 Respiratory Rate Blood Pressure 75/49 150/96 Blood Pressure [Right] O2 Sat by Pulse 98 96 Oximetry 11/05/19 11/05/19 11/05/19 03:45 03:50 03:55 Temperature Pulse Rate 80 82 70 Respiratory Rate Blood Pressure Blood Pressure [Right] O2 Sat by Pulse 96 96 96 Oximetry 11/05/19 11/05/19 11/05/19 04:00 04:02 04:05 Temperature Pulse Rate 83 77 77 Respiratory Rate Blood Pressure 123/66 Blood Pressure [Right] O2 Sat by Pulse 97 98 Oximetry 11/05/19 11/05/19 11/05/19 04:10 04:15 04:20 Temperature 98.4 F Pulse Rate 85 88 55 L Respiratory Rate Blood Pressure Blood Pressure [Right] O2 Sat by Pulse 96 98 83 L Oximetry 11/05/19 11/05/19 11/05/19 05:20 05:25 05:27 Temperature Pulse Rate 88 98 H 101 H Respiratory Rate Blood Pressure Blood Pressure [Right] O2 Sat by Pulse 94 94 94 Oximetry 11/05/19 11/05/19 11/05/19 05:30 05:32 05:35 Temperature Pulse Rate 95 H 92 H 95 H Respiratory Rate Blood Pressure Blood Pressure [Right] O2 Sat by Pulse 95 94 93 Oximetry 11/05/19 11/05/19 11/05/19 05:38 05:40 05:45 Temperature Pulse Rate 88 85 86 Respiratory Rate Blood Pressure Blood Pressure [Right] O2 Sat by Pulse 94 94 92 Oximetry 11/05/19 11/05/19 11/05/19 05:50 05:55 06:00 Temperature Pulse Rate 99 H 90 90 Respiratory Rate Blood Pressure 136/83 Blood Pressure [Right] O2 Sat by Pulse 93 97 97 Oximetry 11/05/19 11/05/19 11/05/19 06:05 06:10 06:15 Temperature Pulse Rate 84 89 83 Respiratory Rate Blood Pressure Blood Pressure [Right] O2 Sat by Pulse 97 97 98 Oximetry 11/05/19 11/05/19 11/05/19 06:20 06:21 06:25 Temperature Pulse Rate 85 84 84 Respiratory Rate Blood Pressure 127/85 Blood Pressure [Right] O2 Sat by Pulse 97 97 Oximetry 11/05/19 11/05/19 11/05/19 06:30 06:35 06:40 Temperature Pulse Rate 85 74 94 H Respiratory Rate Blood Pressure Blood Pressure [Right] O2 Sat by Pulse 97 97 98 Oximetry 11/05/19 11/05/19 11/05/19 06:45 06:50 06:55 Temperature Pulse Rate 82 75 70 Respiratory Rate Blood Pressure 127/83 Blood Pressure [Right] O2 Sat by Pulse 97 98 98 Oximetry 11/05/19 11/05/19 11/05/19 07:00 07:05 07:10 Temperature Pulse Rate 92 H 82 94 H Respiratory Rate Blood Pressure Blood Pressure [Right] O2 Sat by Pulse 98 98 98 Oximetry 11/05/19 11/05/19 11/05/19 07:12 07:14 07:15 Temperature 98.3 F Pulse Rate 94 H 96 H 103 H Respiratory 18 Rate Blood Pressure 127/76 Blood Pressure 127/76 [Right] O2 Sat by Pulse 98 99 Oximetry 11/05/19 11/05/19 11/05/19 07:20 07:25 07:30 Temperature Pulse Rate 79 82 76 Respiratory Rate Blood Pressure 134/75 Blood Pressure [Right] O2 Sat by Pulse 98 98 98 Oximetry 11/05/19 11/05/19 11/05/19 07:35 07:40 07:45 Temperature Pulse Rate 80 86 81 Respiratory Rate Blood Pressure Blood Pressure [Right] O2 Sat by Pulse 97 98 98 Oximetry 11/05/19 11/05/19 11/05/19 07:50 07:55 08:00 Temperature Pulse Rate 75 76 93 H Respiratory Rate Blood Pressure 116/60 Blood Pressure [Right] O2 Sat by Pulse 97 98 99 Oximetry 11/05/19 11/05/19 11/05/19 08:05 08:10 08:15 Temperature Pulse Rate 81 71 112 H Respiratory Rate Blood Pressure Blood Pressure [Right] O2 Sat by Pulse 98 98 99 Oximetry 11/05/19 11/05/19 11/05/19 08:20 08:25 08:30 Temperature Pulse Rate 81 83 84 Respiratory Rate Blood Pressure 116/55 Blood Pressure [Right] O2 Sat by Pulse 97 97 98 Oximetry 11/05/19 11/05/19 11/05/19 08:35 08:40 08:45 Temperature Pulse Rate 85 92 H 92 H Respiratory Rate Blood Pressure Blood Pressure [Right] O2 Sat by Pulse 99 99 99 Oximetry 11/05/19 11/05/19 11/05/19 08:50 08:55 09:00 Temperature Pulse Rate 89 79 78 Respiratory Rate Blood Pressure 118/69 Blood Pressure [Right] O2 Sat by Pulse 97 98 97 Oximetry 11/05/19 11/05/19 11/05/19 09:05 09:10 09:15 Temperature Pulse Rate 82 79 85 Respiratory Rate Blood Pressure Blood Pressure [Right] O2 Sat by Pulse 98 97 97 Oximetry 11/05/19 11/05/19 11/05/19 09:20 09:25 09:30 Temperature Pulse Rate 83 81 85 Respiratory Rate Blood Pressure 124/70 Blood Pressure [Right] O2 Sat by Pulse 97 97 98 Oximetry 11/05/19 11/05/19 11/05/19 09:35 09:40 09:45 Temperature Pulse Rate 83 85 83 Respiratory Rate Blood Pressure Blood Pressure [Right] O2 Sat by Pulse 97 98 98 Oximetry 11/05/19 11/05/19 11/05/19 09:50 09:55 10:00 Temperature Pulse Rate 98 H 102 H 93 H Respiratory Rate Blood Pressure 132/80 Blood Pressure [Right] O2 Sat by Pulse 99 98 98 Oximetry 11/05/19 11/05/19 11/05/19 10:05 10:10 10:15 Temperature Pulse Rate 111 H 95 H 90 Respiratory Rate Blood Pressure Blood Pressure [Right] O2 Sat by Pulse 98 99 99 Oximetry 11/05/19 11/05/19 11/05/19 10:20 10:22 10:29 Temperature Pulse Rate 78 87 77 Respiratory Rate Blood Pressure 135/83 Blood Pressure [Right] O2 Sat by Pulse 99 100 99 Oximetry 11/05/19 11/05/19 11/05/19 10:34 10:39 10:44 Temperature Pulse Rate 83 95 H 80 Respiratory Rate Blood Pressure Blood Pressure [Right] O2 Sat by Pulse 98 99 98 Oximetry - Exam Breasts: deferred Uterus: Present: normal FHR: category 1 Uterine Contraction Monitor Mode: External Uterine Contraction Pattern: Regular Uterine Tone Measurement Phase: Contraction Uterine Contraction Intensity: Mild - Labs Labs: Abnormal Labs 11/02/19 11/02/19 11/02/19 12:00 12:00 13:04 MCHC 35 H RDW 12.7 L [place] % (Auto) 8.0 H Seg Neutrophils % 70.2 H Carbon Dioxide 16 L BUN 5 L Creatinine 0.3 L Magnesium Alkaline Phosphatase 172 H Albumin 3.2 L Ur Total Protein 24 Hr 337.50 H 11/02/19 11/03/19 Unknown 00:31 MCHC RDW [place] % (Auto) Seg Neutrophils % Carbon Dioxide BUN Creatinine Magnesium 3.90 H 3.60 H Alkaline Phosphatase Albumin Ur Total Protein 24 Hr
[2019-11-05] MEDS ORDERED: ePHEDrine SULFATE 50 MG/1 ML INJ IV PRN (14:13)
[2019-11-05] MEDS ORDERED: ePHEDrine SULFATE 50 MG/1 ML INJ ONE (14:13)
[2019-11-05] MEDS ORDERED: NALOXONE 2 MG/2 ML INJ IV PRN (14:13)
--- NOTE | 2019-11-05 14:13 | Anesthesia Consultation ---
Anesthesia Consult and Med Hx Date of service: 11/05/19 - Airway Anesthetic Teeth Evaluation: Poor ROM Head & Neck: Adequate Mental/Hyoid Distance: Adequate Mallampati Class: Class III Intubation Access Assessment: Probably Good - Pulmonary Exam CTA: Yes - Cardiac Exam Cardiac Exam: RRR - Pre-Operative Health Status ASA Pre-Surgery Classification: ASA3 Proposed Anesthetic Plan: Epidural - Pulmonary Hx Smoking: No Hx Asthma: No Hx Respiratory Symptoms: No SOB: No COPD: No Home Oxygen Therapy: No Hx Pneumonia: No Hx Sleep Apnea: No - Cardiovascular System Hx Hypertension: Yes (hx of PIH, ELEVATED b/p WITH THIS ) Hx Coronary Artery Disease: No Hx Heart Attack/AMI: No Hx Angina: No Hx Percutaneous Transluminal Coronary Angioplasty (PTCA): No Hx Cardia Arrhythmia: No Hx Pacemaker: No Hx Internal Defibrillator: No Hx Valvular Heart Disease: No Hx Heart Murmur: No Hx Peripheral Vascular Disease: No - Central Nervous System Hx Neuromuscular Disorder: No Hx Seizures: No CVA: No Hx Back Pain: No Hx Psychiatric Problems: No - Gastrointestinal Hx Ulcer: No Hx Gastroesophageal Reflux Disease: Yes - Endocrine Hx Renal Disease: No Hx End Stage Renal Disease: No Hx Cirrhosis: No Hx Liver Disease: No Hx Insulin Dependent Diabetes: No Hx Non-Insulin Dependent Diabetes: No Hx Thyroid Disease: No Hx Hypothyroidism: No Hx Hyperthyroidism: No - Hematic Hx Anemia: No Hx Sickle Cell Disease: No - Other Systems Hx Alcohol Use: No Hx Substance Use: No Hx Cancer: No Hx Obesity: Yes
[2019-11-05] MEDS ORDERED: fentaNYL-BUPIV 2 MCG/ML-0.125% 200 MCG/100 ML BAG EPIDURAL SCH (15:00)
[2019-11-05] MEDS ORDERED: LIDOCAINE 1.5% /EPINEPHRINE 1:200,000 AMP (5 ML) INFILTRATI ONE ×2 (15:33→15:34)
[2019-11-05] MEDS ORDERED: LIDOCAINE 2%/EPINEPHRINE 1:200,000 VIAL (20 ML) INFILTRATI ONE (15:36)
[2019-11-05] MEDS ORDERED: OXYTOCIN 20 UNIT/1000ML DRIP 40,000 MILLIUNITS/2,000 ML BAG IV ONE (16:53)
--- NOTE | 2019-11-05 17:02 | Procedure Note ---
OB Delivery Note - Delivery Date of Delivery: 11/05/19 Surgeon: ADAM ASHRAF Estimated blood loss: 300cc - Vaginal Delivery presentation: vertex Delivery position: OA Intrapartum events: labor-<37 weeks, preeclampsia Delivery induction: cervidil Delivery augmentation: rupture of membranes, pitocin Delivery monitor: external FHT, external uterine Route of delivery: Delivery placenta: spontaneous Delivery cord: nuchal cord, 3 umbilical vessels Episiotomy: none Delivery laceration: none Anesthesia: epidural Delivery comments: delivered OA and placed on Mom's chest for [id number] bonding and delayed cord clamping, cut by Grandma - Infant A at 1 minute: 8 at 5 minutes: 9 Infant Gender: Male ([id number])
[2019-11-05] MEDS ORDERED: ONDANSETRON 4 MG/2 ML INJ IV PRN (17:13)
[2019-11-05] MEDS ORDERED: WITCH HAZEL/ GLYCERIN PAD TP PRN (17:13)
[2019-11-05] MEDS ORDERED: ACETAMINOPHEN 325 MG TAB PO PRN (17:13)
[2019-11-05] MEDS ORDERED: MAGNESIUM HYDROXIDE (MOM) ORAL LIQD UDC PO PRN (17:13)
[2019-11-05] MEDS ORDERED: diphenhydrAMINE 25 MG CAP PO PRN (17:13)
[2019-11-05] MEDS ORDERED: PROMETHAZINE 25 MG RECT SUPP PR PRN (17:13)
[2019-11-05] MEDS ORDERED: LANOLIN/ZINC/DIMETHICONE (LANSINOH) 7 GM TP PRN (17:13)
[2019-11-05] MEDS ORDERED: PROMETHAZINE 25 MG TAB PO PRN (17:13)
[2019-11-05] MEDS ORDERED: OXYTOCIN 20 UNIT/1000ML DRIP 20 UNITS/1,000 ML BAG IV SCH (18:00)
[2019-11-05] MEDS: IBUPROFEN 600 MG TAB PO SCH (18:02)
[2019-11-05] MEDS: FERROUS SULFATE 325 MG TAB PO SCH (22:54)
[2019-11-06] MEDS: IBUPROFEN 600 MG TAB PO SCH ×4 (02:52→23:16)
[2019-11-06] MEDS: PRENATAL VIT27-FE FUMARATE-FOLIC ACID VIT TAB PO SCH (10:05)
[2019-11-06] MEDS: FERROUS SULFATE 325 MG TAB PO SCH ×2 (10:05→21:30)
[2019-11-06 13:55] LABS: Hematocrit 31.7 % (30.3-42.9); Hemoglobin 10.7 gm/dl (10.1-14.3)
--- NOTE | 2019-11-06 14:00 | Progress Note ---
Assessment and Plan - Patient Problems (1) 34 weeks gestation of Onset Date: 11/02/19 Current Visit: Yes Status: Resolved (2) Preeclampsia Onset Date: 11/02/19 Current Visit: Yes Status: Chronic Qualifiers: Trimester: third trimester Qualified Code(s): O14.93 - Unspecified pre- eclampsia, third trimester (3) (normal spontaneous vaginal delivery) Onset Date: 11/06/19 Current Visit: Yes Status: Resolved Plan to address problem: A: S/P - PPD #1 Doing well Preeclampsia - stable Asymptomatic anemia - stable P: May go home tomorrow if remains stable Begin Labetolol 100mg BID Subjective - Subjective Date of service: 11/06/19 Principal diagnosis: s/p - PPD #1 Interval history: Pt is feeling well without complaints. She states her bleeding was heavy earlier when breast pumping. Patient reports: appetite normal, voiding normally, pain well controlled, flatus, ambulating normally, no dizzy ambulation, no nauseated [place]: doing well, in NICU Objective - Vital Signs Latest vital signs: Vital Signs Temp Pulse Resp BP BP Pulse Ox 11/06/19 08:21 98.4 F 79 18 125/78 94 11/06/19 04:43 98.2 F 72 20 114/82 96 11/05/19 21:35 98.7 F 82 18 122/81 97 11/05/19 19:02 85 137/81 11/05/19 18:33 81 121/79 11/05/19 18:19 92 H 97 11/05/19 18:15 98.1 F 11/05/19 18:14 76 97 11/05/19 18:09 85 99 11/05/19 18:04 94 H 98 11/05/19 17:59 81 98 11/05/19 17:54 75 99 11/05/19 17:49 86 98 11/05/19 17:47 78 18 129/74 11/05/19 17:44 74 99 11/05/19 17:39 78 99 11/05/19 17:34 76 100 11/05/19 17:29 75 99 11/05/19 17:27 67 149/78 11/05/19 17:24 72 100 11/05/19 17:22 85 151/86 11/05/19 17:19 91 H 99 11/05/19 17:17 75 144/88 11/05/19 17:14 72 100 11/05/19 17:12 65 142/79 11/05/19 17:09 76 98 11/05/19 17:04 72 134/87 100 11/05/19 17:03 74 74 L 11/05/19 16:58 77 154/89 11/05/19 16:54 81 152/82 11/05/19 16:45 91 H 98 11/05/19 16:43 89 149/93 11/05/19 16:40 98 H 99 11/05/19 16:38 106 H 168/101 11/05/19 16:35 90 99 11/05/19 16:33 94 H 153/99 11/05/19 16:30 112 H 144/93 99 11/05/19 16:25 85 99 11/05/19 16:24 90 151/92 11/05/19 16:20 103 H 100 11/05/19 16:19 105 H 179/77 11/05/19 16:15 83 100 11/05/19 16:14 121 H 187/85 11/05/19 16:10 89 100 11/05/19 16:09 104 H 152/90 11/05/19 16:05 79 100 11/05/19 16:03 68 146/88 11/05/19 16:00 77 148/89 100 11/05/19 15:55 97 H 141/86 100 11/05/19 15:53 102 H 165/103 11/05/19 15:50 91 H 99 11/05/19 15:45 104 H 99 11/05/19 15:44 72 160/97 11/05/19 15:42 77 169/115 11/05/19 15:41 62 166/99 11/05/19 15:40 68 100 11/05/19 15:35 86 100 11/05/19 15:30 72 99 11/05/19 15:25 68 99 11/05/19 15:24 69 142/87 11/05/19 15:20 71 100 11/05/19 15:15 65 99 11/05/19 15:10 66 100 11/05/19 15:07 66 144/95 11/05/19 15:05 65 142/94 99 11/05/19 15:03 66 137/92 11/05/19 15:01 66 131/91 11/05/19 15:00 68 99 11/05/19 14:59 65 127/84 11/05/19 14:57 65 138/88 11/05/19 14:55 68 133/85 100 11/05/19 14:53 70 133/84 11/05/19 14:51 77 142/71 11/05/19 14:50 72 99 11/05/19 14:49 73 141/67 11/05/19 14:47 87 144/65 11/05/19 14:45 88 99 11/05/19 14:43 80 132/63 11/05/19 14:41 77 148/79 11/05/19 14:40 75 99 11/05/19 14:39 68 146/73 11/05/19 14:37 83 142/75 11/05/19 14:35 69 137/74 99 11/05/19 14:33 76 152/83 11/05/19 14:31 83 158/95 11/05/19 14:30 86 100 11/05/19 14:29 100 H 158/92 11/05/19 14:28 98 H 166/98 11/05/19 14:25 83 161/96 100 11/05/19 14:24 79 156/92 11/05/19 14:20 92 H 100 11/05/19 14:15 71 99 11/05/19 14:10 82 99 11/05/19 14:05 77 99 11/05/19 14:00 72 99 Intake and Output 11/05/19 11/06/19 11/06/19 22:59 06:59 14:59 Intake Total 240 Output Total 750 400 Balance -750 -400 240 Intake: Oral 240 Output: Urine 750 400 Void 750 400 Other: Total, Intake Amount 240 Total, Output Amount 450 400 # Voids Void 1 1 Estimated Blood Loss 300 - Exam Breasts: Present: deferred Abdomen: Present: normal appearance, soft Uterus: Present: normal, firm, fundal height below umbilicus Extremities: Present: normal - Labs Labs: Laboratory Tests 11/02/19 11/02/19 11/02/19 12:00 12:00 12:00 WBC 8.3 RBC 4.19 Hgb 12.9 Hct 37.1 MCV 88 MCH 31 MCHC 35 H RDW 12.7 L Plt Count 223 Lymph % (Auto) 20.8 [place] % (Auto) 8.0 H Eos % (Auto) 0.7 Baso % (Auto) 0.3 Lymph # 1.7 [place] # 0.7 Eos # 0.1 Baso # 0.0 Seg Neutrophils % 70.2 H Seg Neutrophils # 5.8 Sodium 138 Potassium 4.5 Chloride 105.9 Carbon Dioxide 16 L Anion Gap 21 BUN 5 L Creatinine 0.3 L Estimated GFR > 60 BUN/Creatinine Ratio 17 Glucose 69 Uric Acid Calcium 9.1 Magnesium 1.70 Total Bilirubin 0.50 AST 22 ALT 15 Alkaline Phosphatase 172 H Total Protein 6.6 Albumin 3.2 L Albumin/Globulin Ratio 0.9 Urine Color Urine Turbidity Urine pH Ur Specific [place] Urine Protein Urine Glucose (UA) Urine Ketones Urine Blood Urine Nitrite Urine Bilirubin Urine Urobilinogen Ur Leukocyte Esterase Urine WBC (Auto) Urine RBC (Auto) U Epithel Cells (Auto) Urine Bacteria (Auto) Urine Mucus Urine Total Volume Ur Total Protein 24 Hr Urine Total Protein Syphilis IgG Antibody Hep Bs Antigen Blood Type Antibody Screen 11/02/19 11/02/19 11/02/19 13:04 20:54 20:54 WBC RBC Hgb Hct MCV MCH MCHC RDW Plt Count Lymph % (Auto) [place] % (Auto) Eos % (Auto) Baso % (Auto) Lymph # [place] # Eos # Baso # Seg Neutrophils % Seg Neutrophils # Sodium Potassium Chloride Carbon Dioxide Anion Gap BUN Creatinine Estimated GFR BUN/Creatinine Ratio Glucose Uric Acid Calcium Magnesium Total Bilirubin AST ALT Alkaline Phosphatase Total Protein Albumin Albumin/Globulin Ratio Urine Color Urine Turbidity Urine pH Ur Specific [place] Urine Protein Urine Glucose (UA) Urine Ketones Urine Blood Urine Nitrite Urine Bilirubin Urine Urobilinogen Ur Leukocyte Esterase Urine WBC (Auto) Urine RBC (Auto) U Epithel Cells (Auto) Urine Bacteria (Auto) Urine Mucus Urine Total Volume 3750 Ur Total Protein 24 Hr 337.50 H Urine Total Protein 9 Syphilis IgG Antibody Non-reactive Hep Bs Antigen Non-reactive Blood Type Antibody Screen 11/02/19 11/02/19 11/02/19 21:15 Unknown Unknown WBC RBC Hgb Hct MCV MCH MCHC RDW Plt Count Lymph % (Auto) [place] % (Auto) Eos % (Auto) Baso % (Auto) Lymph # [place] # Eos # Baso # Seg Neutrophils % Seg Neutrophils # Sodium Potassium Chloride Carbon Dioxide Anion Gap BUN Creatinine Estimated GFR BUN/Creatinine Ratio Glucose Uric Acid Calcium Magnesium 3.90 H Total Bilirubin AST ALT Alkaline Phosphatase Total Protein Albumin Albumin/Globulin Ratio Urine Color Straw Urine Turbidity Clear Urine pH 6.0 Ur Specific [place] 1.009 Urine Protein <15 mg/dl Urine Glucose (UA) Neg Urine Ketones Neg Urine Blood Sm Urine Nitrite Neg Urine Bilirubin Neg Urine Urobilinogen < 2.0 Ur Leukocyte Esterase Lg Urine WBC (Auto) 1.0 Urine RBC (Auto) 4.0 U Epithel Cells (Auto) 1.0 Urine Bacteria (Auto) 2+ Urine Mucus Few Urine Total Volume Ur Total Protein 24 Hr Urine Total Protein Syphilis IgG Antibody Hep Bs Antigen Blood Type B POSITIVE Antibody Screen Negative 11/02/19 11/03/19 11/06/19 Unknown 00:31 13:44 WBC RBC Hgb 10.7 Hct 31.7 MCV MCH MCHC RDW Plt Count Lymph % (Auto) [place] % (Auto) Eos % (Auto) Baso % (Auto) Lymph # [place] # Eos # Baso # Seg Neutrophils % Seg Neutrophils # Sodium Potassium Chloride Carbon Dioxide Anion Gap BUN Creatinine Estimated GFR BUN/Creatinine Ratio Glucose Uric Acid 4.9 Calcium Magnesium 3.60 H Total Bilirubin AST ALT Alkaline Phosphatase Total Protein Albumin Albumin/Globulin Ratio Urine Color Urine Turbidity Urine pH Ur Specific [place] Urine Protein Urine Glucose (UA) Urine Ketones Urine Blood Urine Nitrite Urine Bilirubin Urine Urobilinogen Ur Leukocyte Esterase Urine WBC (Auto) Urine RBC (Auto) U Epithel Cells (Auto) Urine Bacteria (Auto) Urine Mucus Urine Total Volume Ur Total Protein 24 Hr Urine Total Protein Syphilis IgG Antibody Hep Bs Antigen Blood Type Antibody Screen
[2019-11-06] MEDS ORDERED: MEASLES, MUMPS & RUBELLA 12,500 UNIT/0.5 ML VACCINE SUB-Q ONE (17:13)
[2019-11-06] MEDS ORDERED: TETANUS,DIPH,PERTUSS(ACELL) VACCINE 0.5 ML SYRINGE IM ONE (18:13)
[2019-11-07] MEDS: IBUPROFEN 600 MG TAB PO SCH ×2 (06:01→06:27)
[2019-11-07] MEDS: PRENATAL VIT27-FE FUMARATE-FOLIC ACID VIT TAB PO SCH (10:23)
[2019-11-07] MEDS: FERROUS SULFATE 325 MG TAB PO SCH (10:24)
--- NOTE | 2019-11-07 11:37 | Progress Note ---
Assessment and Plan - Patient Problems (1) 34 weeks gestation of Onset Date: 11/02/19 Current Visit: Yes Status: Resolved (2) Preeclampsia Onset Date: 11/02/19 Current Visit: Yes Status: Chronic Qualifiers: Trimester: third trimester Qualified Code(s): O14.93 - Unspecified pre- eclampsia, third trimester (3) (normal spontaneous vaginal delivery) Onset Date: 11/06/19 Current Visit: Yes Status: Resolved Plan to address problem: A: S/P - PPD #2 Doing well Preeclampsia - stable Asymptomatic anemia - stable P: May go home today Follow up in office in 1 week for BP check. Subjective - Subjective Date of service: 11/07/19 Principal diagnosis: s/p - PPD #2 Interval history: Pt is feeling well without complaints. Patient reports: appetite normal, voiding normally, pain well controlled, flatus, ambulating normally, no dizzy ambulation, no nauseated : doing well, in NICU, nursing well Objective - Vital Signs Latest vital signs: Vital Signs Temp Pulse Resp BP Pulse Ox 11/07/19 07:47 97.8 F 71 18 108/69 99 11/07/19 06:27 18 11/07/19 04:24 98.2 F 90 18 110/69 97 11/07/19 01:04 98.0 F 89 18 108/61 98 11/06/19 23:16 18 11/06/19 23:13 86 130/78 11/06/19 21:49 98.5 F 95 H 20 129/74 97 11/06/19 16:55 99.0 F 105 H 18 133/87 97 Intake and Output 11/06/19 11/07/19 11/07/19 22:59 06:59 14:59 Intake Total 1200 360 Balance 1200 360 Intake: Oral 600 Intake, Free Water 600 360 Other: Total, Intake Amount 240 # Voids Void 2 1 - Exam Breasts: Present: deferred Abdomen: Present: normal appearance, soft Uterus: Present: normal, firm, fundal height below umbilicus Extremities: Present: normal
--- NOTE | 2019-11-07 11:38 | Discharge Summary ---
Providers - Providers Date of Admission: 11/02/19 21:01 Date of discharge: 11/07/19 Attending physician: ADAM ASHRAF 11/03/19 12:10 Consult to Physician [CONS] Urgent Comment: Consulting Provider: NIC YANG Physician Instructions: Reason For Exam: IUP @ 34 3/7 weeks; Preeclampsia Primary care physician: ADAM ASHRAF Hospitalization Reason for admission: IUP - , observation, induction of labor, other (Preeclampsia) Delivery: Episiotomy: none Laceration: none Other procedures: none complications: none Discharge diagnosis: delivery [place] baby: male Hospital course: Pt is a 29yo BF EDC 12/12/19; EGA 34 5/7 weeks who presented to L&D from [facility] for evaluation of elevated BP's in office (150/117 and 149/96). She received care at [facility] since 10 weeks and co-managed by [facility] for Morbid Obesity, history of Preeclampsia, Chronic hypertension - not on meds, and delivery. She complained of headaches for past several days, but denied visual disturbances or epigastric pain. records were available and GBS was Positive. She received IV Magnesium sulfate, Betamethasone and then was induced and delivered a viable male infant. Post course was uneventful and BP's were controlled with PO Labetolol. She will therefore be discharged to home today, and will follow up in the office in 1 week for BP check. Condition at discharge: Good Disposition: [id number] TO HOME OR SELFCARE - Discharge Diagnoses (1) 34 weeks gestation of Status: Resolved (2) Preeclampsia Status: Chronic Qualifiers: Trimester: third trimester Qualified Code(s): O14.93 - Unspecified pre- eclampsia, third trimester (3) (normal spontaneous vaginal delivery) Status: Resolved Plan - Discharge Medications Prescriptions: Ferrous Sulfate [Feosol 325 MG tab] 325 mg PO BID #60 tablet labetaloL [Labetalol 100mg TAB] 100 mg PO BID #60 tablet Ibuprofen [Motrin 600 MG tab] 600 mg PO Q6H #30 tablet Vit-Fe Fumar-FA [ Vitamin] 1 each PO QDAY #30 tablet - Provider Discharge Summary Activity: routine, no sex for 6 weeks, no heavy lifting 4 weeks, no strenuous exercise Diet: routine Instructions: routine Additional instructions: [] Smoking cessation referral if applicable(refer to patient education folder for contact #) [] Refer to [facility]'s [facility] Booklet Call your doctor immediately for: * Fever > 100.5 * Heavy vaginal bleeding ( >1 pad per hour) * Severe persistent headache * Shortness of breath * Reddened, hot, painful area to leg or breast * Drainage or odor from incision. * Keep incision clean and dry at all times and follow doctor's instructions regarding bathing/showering - Follow up plan Follow up: ADAM ASHRAF MD [Primary Care Provider] - 7 Days NU PONCE NP [Referring] - 7 Days Forms: [facility] Discharge Summary
[2019-11-07 13:42] VITALS: BP 133/85
== END 2019-11-07 13:45 | disposition home or self-care (01) | DRG 774 ==
LOC: LD 09:41 → TRG 09:41 → LD 09:42 → TRG 21:00 → LD 21:01 → OB 11-05 20:13
PROVIDERS: ADMIT Obstetrics & Gynecology; ATTEND Obstetrics & Gynecology
PROC: 10E0XZZ Delivery of Products of Conception, External Approach (ICD-10-PCS; principal; 2019-11-04)
PROC: 3E0P7VZ Introduction of Hormone into Female Reproductive, Via Natural or Artificial Opening (ICD-10-PCS; 2019-11-04)
PROC: 3E0R3BZ Introduction of Anesthetic Agent into Spinal Canal, Percutaneous Approach (ICD-10-PCS; 2019-11-04)
PROC: 00HU33Z Insertion of Infusion Device into Spinal Canal, Percutaneous Approach (ICD-10-PCS; 2019-11-04)
DX: O14.94 Unspecified pre-eclampsia, complicating childbirth (principal); O10.92 Unspecified pre-existing hypertension complicating childbirth; O60.14X0 Preterm labor third trimester with preterm delivery third trimester, not applicable or unspecified; O99.214 Obesity complicating childbirth; E66.01 Morbid (severe) obesity due to excess calories; O99.824 Streptococcus B carrier state complicating childbirth; O99.62 Diseases of the digestive system complicating childbirth; O69.81X0 Labor and delivery complicated by cord around neck, without compression, not applicable or unspecified; O90.81 Anemia of the puerperium; D64.9 Anemia, unspecified; Z3A.34 34 weeks gestation of pregnancy; Z37.0 Single live birth
CPT/HCPCS: 36415; 59025; 59200; 80053; 81001; 83735; 84156; 84550; 85014; 85018; 85025; 86592; 86706; 86850; 86900; 86901; 88307; 93005; 93010; 96360; 96361; 96365; 96366; G0378; J0290; J0595; J0702; J2405; J2590; J3475; J7120